=== PATIENT | male | born 2000 | race Caucasian/White ===

== ENCOUNTER 2023-09-28 09:06 | Outpatient (CLI) | payer OTHER | END 2023-09-28 09:07 | disposition home or self-care (01) | LOC: SCSMRI 09:06 | PROVIDERS: ATTEND Nurse Practitioner Family | DX: Z02.6 Encounter for examination for insurance purposes (principal); S89.91XA Unspecified injury of right lower leg, initial encounter; S83.411A Sprain of medial collateral ligament of right knee, initial encounter; M25.461 Effusion, right knee ==